=== PATIENT | female | born 1995 | race Caucasian/White ===

== ENCOUNTER → 2018-10-18 | Outpatient (CLI) | payer OTHER, BC ==
[~2018-10-18] MED LIST: OMEP20ER; ONDA4ODT; SULTRIEL
== END | disposition home or self-care (01) ==
LOC: LAB EV 19:09 → LAB SHORT 19:09
DX: J02.9 Acute pharyngitis, unspecified (principal)
CPT/HCPCS: 87070

== ENCOUNTER → 2018-11-23 | Outpatient (CLI) | payer OTHER, BC | END | disposition home or self-care (01) | LOC: LAB SHORT 10:49 → LAB 10:49 | PROVIDERS: Obstetrics & Gynecology | DX: Z01.419 Encounter for gynecological examination (general) (routine) without abnormal findings (principal) | CPT/HCPCS: G0123 ==

== ENCOUNTER → 2022-10-06 | Outpatient (CLI) | payer BC ==
[2022-10-06 13:20] LABS: International Normalized Ratio 0.99; Prothrombin Time Results 10.4 Sec (9.7-11.5)
[2022-10-06 14:11] LABS: Glutamyl Transpeptidase, GGT 21 U/L (5-55)
[2022-10-06 14:20] LABS: Alanine Aminotransfer (ALT/SGP 93 U/L (12-78); Albumin, Blood 3.5 g/dL (3.4-5.0); Albumin/Globulin Ratio 0.8 (0.8-1.8); Alk Phos 65 U/L (50-136); Aspartate Aminotrans (AST/SGOT 34 U/L (12-37); Bilirubin, Direct <0.1 mg/dL (0.0-0.3); Bilirubin, Indirect Unable to Calculate mg/dL (0.1-0.7); Bilirubin, Total 0.5 mg/dL (0.1-1.0); Globulin, Blood 4.6 g/dL (2.2-4.0); Total Protein, Blood 8.1 g/dL (6.4-8.2)
== END | disposition home or self-care (01) ==
LOC: LAB SHORT 12:21 → LAB 12:21
PROVIDERS: Nurse Practitioner Family
DX: R16.0 Hepatomegaly, not elsewhere classified (principal)
CPT/HCPCS: 80076; 82977; 85610

== ENCOUNTER → 2024-12-10 | Outpatient (CLI) | payer BC ==
[2024-12-10 11:48] LABS: Source, Urine Clean Catch
[2024-12-10 14:32] LABS: Appearance, Urine Clear (Clear); Bilirubin, Urine Neg (Neg); Blood, Urine Neg (Neg); Color, Urine Yellow (P-Yellow); Glucose Qualitative, Urine Neg (Neg); Ketones, Urine Neg (Neg); Leukocyte Esterase, Urine Neg (Neg); Nitrite, Urine Neg (Neg); Protein, Urine 1+ (Neg); Urobilinogen, Urine NORM (Normal)
[2024-12-10 14:41] LABS: BASOPHILS ABSOLUTE AUTO 0.02 K/mm3 (0.00-0.23); BASOPHILS PERCENT AUTO 0 % (0-2); EOSINOPHILS ABSOLUTE AUTO 0.04 K/mm3 (0.00-0.68); EOSINOPHILS PERCENT AUTO 1 % (0-6); Hematocrit 44.5 % (33.0-51.0); IMMATURE GRAN ABSOLUTE AUTO 0.02 K/mm3 (0.00-0.10); IMMATURE GRAN PERCENT AUTO 0 % (0-1); LYMPHOCYTES ABSOLUTE AUTO 1.69 K/mm3 (0.84-5.20); LYMPHOCYTES PERCENT AUTO 23 % (21-46); MONOCYTES ABSOLUTE AUTO 0.45 K/mm3 (0.16-1.47); MONOCYTES PERCENT AUTO 6 % (4-13); Mean Corpuscular HGB 28.2 pg (26.0-34.0); Mean Corpuscular HGB Conc 33.7 g/dL (31.5-36.5); Mean Corpuscular Volume 84 fL (80-100); Mean Platelet Volume 12.9 fL (9.1-12.4); NEUTROPHILS ABSOLUTE AUTO 5.02 K/mm3 (1.96-9.15); NEUTROPHILS PERCENT AUTO 69 % (41-73); Platelet Count 230 K/mm3 (150-400); RDW Coefficient Variation 13.7 % (11.7-14.2); Red Blood Cell Count 5.32 M/mm3 (3.80-5.20); White Blood Cell Count 7.24 K/mm3 (4.00-11.30)
[2024-12-11 16:59] LABS: HEPATITIS B SURFACE ANTIGEN Negative (Negative)
[2024-12-11 17:51] LABS: HIV 1,2 COMBO ANTIGEN/ANTIBODY Negative (Negative)
[2024-12-11 19:14] LABS: HEPATITIS C AB CIA INTERP Negative (Negative); HEPATITIS C ANTIBODY CIA INDEX 0.03 IV
== END | disposition home or self-care (01) ==
LOC: LAB SHORT 11:46 → LAB 11:46
PROVIDERS: Registered Nurse Community Health
DX: Z34.91 Encounter for supervision of normal pregnancy, unspecified, first trimester (principal)
CPT/HCPCS: 84443; 86803; 87086; 87340; 87389

== ENCOUNTER → 2025-06-23 | Outpatient (CLI) | payer BC ==
[~2025-06-23] MED LIST changes: +Aspir 8181 MG PO; +DESV50 PO; +FAMO20; +LABE100 PO; +METF500C PO; +PRENATAL TABLE1 EAC2 PO; +PROBIOTIC1 EA13 PO; +[UNRECOGNIZED DRUG - OTHER] PO
== END ==
LOC: LAB SHORT 08:00 → LAB 08:00
DX: Z34.03 Encounter for supervision of normal first pregnancy, third trimester (principal)
CPT/HCPCS: 87081

== ENCOUNTER 2025-06-24 18:25 | Inpatient (IN) | payer BC ==
[2025-06-24] VITALS (14 sets, daily range): BP systolic 129–180; BP diastolic 60–91
[~2025-06-24] VITALS: Ht 165.1 cm; Wt 127.3 kg
[~2025-06-24 18:25] MED LIST changes: -Aspir 8181 MG PO; -DESV50 PO; -FAMO20; -LABE100 PO; -METF500C PO; -PRENATAL TABLE1 EAC2 PO; -PROBIOTIC1 EA13 PO; -[UNRECOGNIZED DRUG - OTHER] PO
[2025-06-24] MEDS ORDERED: Magnesium Sulf 2 GM/Water 50ML 50 ML IV SCH (19:25)
[2025-06-24] MEDS ORDERED: Labetalol HCL 5 MG/ML 4ML Injection (Single Dose) IV PRN ×3 (19:25→23:45)
[2025-06-24] MEDS ORDERED: Labetalol HCL 5 MG/ML 4ML Injection (Single Dose) IV ONE (19:25)
[2025-06-24] MEDS ORDERED: OXYTOCIN/RINGER'S LACTATE 500 ML IV PRN (19:35)
[2025-06-24] MEDS ORDERED: Ondansetron HCl 2 MG / ML 2ML Vial IV PRN (19:35)
[2025-06-24] MEDS ORDERED: Oxytocin 10 Unit / ML Vial IM PRN (19:35)
[2025-06-24] MEDS ORDERED: Carboprost Tromethamine 250 MCG/ML 1ML Amp IM PRN (19:35)
[2025-06-24] MEDS ORDERED: Methylergonovine Maleate 0.2MG / ML 1ML Amp IM PRN (19:35)
[2025-06-24] MEDS ORDERED: Tranexamic Acid 100 ML IV SCH (19:55)
[2025-06-24] MEDS ORDERED: Aspir 8181 MG PO (20:16)
[2025-06-24] MEDS ORDERED: LABE100 PO (20:17)
[2025-06-24] MEDS ORDERED: METF500C PO (20:18)
[2025-06-24] MEDS ORDERED: DESV50 PO (20:18)
[2025-06-24] MEDS ORDERED: PROBIOTIC1 EA13 PO (20:19)
[2025-06-24] MEDS ORDERED: PRENATAL TABLE1 EAC2 PO (20:19)
[2025-06-24] MEDS ORDERED: FAMO20 (20:19)
[2025-06-24] MEDS ORDERED: [UNRECOGNIZED DRUG - OTHER] PO (20:20)
[2025-06-24 20:53] LABS: BASOPHILS ABSOLUTE AUTO 0.02 K/mm3 (0.00-0.23); BASOPHILS PERCENT AUTO 0 % (0-2); EOSINOPHILS ABSOLUTE AUTO 0.08 K/mm3 (0.00-0.68); EOSINOPHILS PERCENT AUTO 1 % (0-6); Hematocrit 33.8 % (33.0-51.0); Hemoglobin 11.3 g/dL (11.5-16.0); IMMATURE GRAN ABSOLUTE AUTO 0.03 K/mm3 (0.00-0.10); IMMATURE GRAN PERCENT AUTO 0 % (0-1); LYMPHOCYTES ABSOLUTE AUTO 2.16 K/mm3 (0.84-5.20); LYMPHOCYTES PERCENT AUTO 22 % (21-46); MONOCYTES ABSOLUTE AUTO 0.67 K/mm3 (0.16-1.47); MONOCYTES PERCENT AUTO 7 % (4-13); Mean Corpuscular HGB Conc 33.4 g/dL (31.5-36.5); Mean Corpuscular Volume 82 fL (80-100); NEUTROPHILS ABSOLUTE AUTO 7.03 K/mm3 (1.96-9.15); NEUTROPHILS PERCENT AUTO 70 % (41-73); NRBC ABSOLUTE 0.00 K/mm3 (0.00-0.02); NRBC Auto 0.0 /100 WBC (0.0-0.2); Platelet Count 220 K/mm3 (150-400); RDW Coefficient Variation 14.7 % (11.7-14.2); RDW Standard Deviation 43.8 fL (35.1-46.3)
[2025-06-24 21:10] LABS: Fibrinogen 652.0 mg/dL (170-430); Prothrombin Time Results 10.3 Sec (9.7-11.5)
[2025-06-24 21:21] LABS: Alanine Aminotransfer (ALT/SGP 36.0 U/L (12-78); Albumin, Blood 2.5 g/dL (3.4-5.0); Albumin/Globulin Ratio 0.6 (0.8-1.8); Anion Gap 9.0 mmol/L (3-11); Aspartate Aminotrans (AST/SGOT 31.0 U/L (12-37); Bilirubin, Total 0.4 mg/dL (0.1-1.0); Blood Urea Nitrogen 9.0 mg/dL (8-24); CO2, Blood 22.0 mmol/L (21-32); Calcium, Blood 9.1 mg/dL (8.5-10.1); Chloride, Blood 108.0 mmol/L (98-108); Creatinine, Blood 0.53 mg/dL (0.40-1.00); Globulin, Blood 4.4 g/dL (2.2-4.0); Glucose, Blood 81.0 mg/dL (70-99); Lactate Dehydrogenase (Ld),Bld 278.0 U/L (100-240); Potassium, Blood 3.8 mmol/L (3.5-5.5); Sodium, Blood 135.0 mmol/L (136-145); Total Protein, Blood 6.9 g/dL (6.4-8.2)
[2025-06-24 22:54] LABS: Creatinine, Urine Random 48.5 mg/dL (27.00-270.00); Protein, Urine Random 12.6 mg/dL (0.0-11.9); Protein/Creat Ratio, Ur Random 0.3
[2025-06-25] VITALS (48 sets, daily range): BP systolic 118–174; BP diastolic 57–124
[2025-06-25] MEDS ORDERED: Metoclopramide HCl 5MG / ML 2ML Vial IV PRN (02:45)
[2025-06-25] MEDS ORDERED: DiphenhydrAMINE HCl 50 MG/ML 1ML Vial IV ONE ×2 (02:45→09:00)
[2025-06-25] MEDS ORDERED: Pantoprazole Sodium 40 MG Injection IV SCH (02:45)
[2025-06-25 06:29] LABS: BASOPHILS ABSOLUTE AUTO 0.01 K/mm3 (0.00-0.23); BASOPHILS PERCENT AUTO 0 % (0-2); EOSINOPHILS ABSOLUTE AUTO 0.03 K/mm3 (0.00-0.68); EOSINOPHILS PERCENT AUTO 0 % (0-6); Hematocrit 34.3 % (33.0-51.0); Hemoglobin 11.2 g/dL (11.5-16.0); IMMATURE GRAN ABSOLUTE AUTO 0.03 K/mm3 (0.00-0.10); IMMATURE GRAN PERCENT AUTO 0 % (0-1); LYMPHOCYTES ABSOLUTE AUTO 1.59 K/mm3 (0.84-5.20); LYMPHOCYTES PERCENT AUTO 13 % (21-46); MONOCYTES ABSOLUTE AUTO 0.49 K/mm3 (0.16-1.47); MONOCYTES PERCENT AUTO 4 % (4-13); Mean Corpuscular HGB Conc 32.7 g/dL (31.5-36.5); Mean Corpuscular Volume 84 fL (80-100); NEUTROPHILS ABSOLUTE AUTO 9.91 K/mm3 (1.96-9.15); NEUTROPHILS PERCENT AUTO 82 % (41-73); NRBC ABSOLUTE 0.00 K/mm3 (0.00-0.02); NRBC Auto 0.0 /100 WBC (0.0-0.2); Platelet Count 203 K/mm3 (150-400); RDW Coefficient Variation 14.6 % (11.7-14.2); RDW Standard Deviation 44.5 fL (35.1-46.3)
[2025-06-25 06:44] LABS: Alanine Aminotransfer (ALT/SGP 38.0 U/L (12-78); Albumin, Blood 2.5 g/dL (3.4-5.0); Albumin/Globulin Ratio 0.6 (0.8-1.8); Anion Gap 10.0 mmol/L (3-11); Aspartate Aminotrans (AST/SGOT 30.0 U/L (12-37); Bilirubin, Total 0.5 mg/dL (0.1-1.0); Blood Urea Nitrogen 7.0 mg/dL (8-24); CO2, Blood 24.0 mmol/L (21-32); Calcium, Blood 8.1 mg/dL (8.5-10.1); Chloride, Blood 102.0 mmol/L (98-108); Creatinine, Blood 0.52 mg/dL (0.40-1.00); Globulin, Blood 4.3 g/dL (2.2-4.0); Glucose, Blood 116.0 mg/dL (70-99); Potassium, Blood 3.8 mmol/L (3.5-5.5); Sodium, Blood 132.0 mmol/L (136-145); Total Protein, Blood 6.8 g/dL (6.4-8.2)
[2025-06-25] MEDS ORDERED: HydrALAZINE HCl 20 MG / ML 1ML Vial IV ONE (12:55)
[2025-06-25] MEDS ORDERED: HydrALAZINE HCl 20 MG / ML 1ML Vial IV PRN ×2 (13:00)
[2025-06-25] MEDS ORDERED: Labetalol HCL 5 MG/ML 4ML Injection (Single Dose) ONE (14:17)
[2025-06-25] MEDS ORDERED: Ondansetron HCl 2 MG / ML 2ML Vial IV ONE (14:30)
[2025-06-25] MEDS ORDERED: Ondansetron HCl 2 MG / ML 2ML Vial IV PRN (18:50)
[2025-06-25] MEDS ORDERED: Morphine Sulfate 10 MG/ML 1MLSYR IM PRN (18:50)
[2025-06-25] MEDS ORDERED: DiphenhydrAMINE HCl 50 MG/ML 1ML Vial IV PRN (18:50)
[2025-06-25] MEDS ORDERED: OXYTOCIN/RINGER'S LACTATE 500 ML IV SCH (19:05)
[2025-06-26] VITALS (32 sets, daily range): BP systolic 105–150; BP diastolic 50–93
[2025-06-26 06:11] LABS: BASOPHILS ABSOLUTE AUTO 0.02 K/mm3 (0.00-0.23); BASOPHILS PERCENT AUTO 0 % (0-2); EOSINOPHILS ABSOLUTE AUTO 0.05 K/mm3 (0.00-0.68); EOSINOPHILS PERCENT AUTO 1 % (0-6); Hematocrit 34.9 % (33.0-51.0); Hemoglobin 11.6 g/dL (11.5-16.0); IMMATURE GRAN ABSOLUTE AUTO 0.03 K/mm3 (0.00-0.10); IMMATURE GRAN PERCENT AUTO 0 % (0-1); LYMPHOCYTES ABSOLUTE AUTO 1.50 K/mm3 (0.84-5.20); LYMPHOCYTES PERCENT AUTO 14 % (21-46); MONOCYTES ABSOLUTE AUTO 0.90 K/mm3 (0.16-1.47); MONOCYTES PERCENT AUTO 8 % (4-13); Mean Corpuscular HGB Conc 33.2 g/dL (31.5-36.5); Mean Corpuscular Volume 83 fL (80-100); NEUTROPHILS ABSOLUTE AUTO 8.45 K/mm3 (1.96-9.15); NEUTROPHILS PERCENT AUTO 77 % (41-73); NRBC ABSOLUTE 0.00 K/mm3 (0.00-0.02); NRBC Auto 0.0 /100 WBC (0.0-0.2); Platelet Count 216 K/mm3 (150-400); RDW Coefficient Variation 14.9 % (11.7-14.2); RDW Standard Deviation 44.9 fL (35.1-46.3)
[2025-06-26 06:25] LABS: Alanine Aminotransfer (ALT/SGP 42.0 U/L (12-78); Albumin, Blood 2.5 g/dL (3.4-5.0); Albumin/Globulin Ratio 0.6 (0.8-1.8); Anion Gap 12.0 mmol/L (3-11); Aspartate Aminotrans (AST/SGOT 30.0 U/L (12-37); Bilirubin, Total 0.5 mg/dL (0.1-1.0); Blood Urea Nitrogen 6.0 mg/dL (8-24); CO2, Blood 23.0 mmol/L (21-32); Calcium, Blood 7.8 mg/dL (8.5-10.1); Chloride, Blood 104.0 mmol/L (98-108); Creatinine, Blood 0.67 mg/dL (0.40-1.00); Globulin, Blood 4.4 g/dL (2.2-4.0); Glucose, Blood 103.0 mg/dL (70-99); Potassium, Blood 3.6 mmol/L (3.5-5.5); Sodium, Blood 135.0 mmol/L (136-145); Total Protein, Blood 6.9 g/dL (6.4-8.2)
[2025-06-26] MEDS ORDERED: Pantoprazole Sodium 40 MG Injection IV SCH (09:00)
[2025-06-26] MEDS ORDERED: Petrolatum/Mineral Oil/Lanolin 1 APPLIC/50 GM Tube TOP PRN (21:35)
[2025-06-27] VITALS (44 sets, daily range): BP systolic 91–173; BP diastolic 49–88
[2025-06-27] MEDS ORDERED: FentaNYL Citrate 50 MCG/ML 2 ML Injection IV ONE (11:30)
[2025-06-27] MEDS ORDERED: FentaNYL 2mcg/ml-Bup 0.1% Epd 250 ML EPI PRN (18:05)
[2025-06-27] MEDS ORDERED: ePHEDrine Sulfate 50 MG/ML 1ML Injection XX PRN (18:05)
[2025-06-27] MEDS ORDERED: FentaNYL Citrate 50 MCG/ML 2 ML Injection ONE (18:35)
[2025-06-27] MEDS ORDERED: Prochlorperazine Edisylate 10 mg Vial ONE (18:39)
[2025-06-27] MEDS ORDERED: Metoclopramide HCl 5MG / ML 2ML Vial ONE (18:39)
--- NOTE | 2025-06-27 23:50 | NUR ---
IN USE CHECK LIST UC LENGTH EQUAL TO OR EXCEEDING 120 SECONDS ON GREATER THAN 2 UC'S IN [address], UC'S MILD. PIT CONTINUED AT THIS TIME AT 4MU
[2025-06-28] VITALS (45 sets, daily range): BP systolic 98–177; BP diastolic 57–87
[2025-06-28] MEDS ORDERED: CeFAZolin Sodium 3,000 MG in NS 100 ML IV SCH (07:25)
[2025-06-28] MEDS ORDERED: Citric Acid/Sodium Citrate 30 ML BTL PO STA (07:30)
[2025-06-28] MEDS ORDERED: Metoclopramide HCl 5MG / ML 2ML Vial IV ONE (07:30)
[2025-06-28] MEDS ORDERED: FentaNYL Citrate 50 MCG/ML 2 ML Injection ONE (12:28)
[2025-06-28] MEDS ORDERED: Lidocaine HCl 2% 10 ML SDA ONE (12:29)
[2025-06-28 12:35] LABS: Platelet Count 196 K/mm3 (150-400)
[2025-06-28] MEDS ORDERED: Phenylephrine HCl 100 MCG/ML-NS 10MLSYR (1MG/10ML) ONE (12:46)
[2025-06-28] MEDS ORDERED: Bupivacaine HCl 0.25% 30 ML Injection ONE (12:54)
[2025-06-28] MEDS ORDERED: Bupivacaine 0.5% HCl 5 MG/ML 30MLVIAL ONE (12:54)
[2025-06-28] MEDS ORDERED: Oxytocin 10 Unit / ML Vial ONE (12:55)
[2025-06-28] MEDS ORDERED: Ketamine HCl 100 MG / ML 5ML Vial ONE (13:03)
[2025-06-28] MEDS ORDERED: Midazolam HCl 1MG / ML 2ML Vial ONE (13:08)
--- NOTE | 2025-06-28 13:18 | NUR ---
06/28/25 1318 Viri Singer MARTÍNEZ CATHETER AND EPIDURAL PLACED PRIOR TO COMING TO OR. BABY BORN AT 1303. CORD SENT WITH RT AND CORD BLOOD GIVEN TO L&D STAFF.
[2025-06-28 13:22] LABS: PCO2 Cord - Arterial 72.1 mmHg (40-50); PO2 Cord - Arterial 13.0 mmHg (16-20); pH Cord - Arterial 7.16 (7.28-7.35)
[2025-06-28] MEDS ORDERED: HYDROmorphone HCl/Pf 1MG SYR ONE (13:22)
[2025-06-28 13:24] LABS: PCO2 Cord - Venous 57.9 mmHg (40-50); PO2 Cord - Venous 13.6 mmHg (28-32); pH Umbilical Cord - Venous 7.26 (7.26-7.35)
[2025-06-28] MEDS ORDERED: Ketorolac Tromethamine 30mg Vial ONE (13:40)
[2025-06-28] MEDS ORDERED: Magnesium Hydroxide Conc 10 ML UDC PO PRN (14:10)
[2025-06-28] MEDS ORDERED: Tranexamic Acid 100 ML IV SCH (14:15)
[2025-06-28] MEDS ORDERED: HYDROmorphone HCl/Pf 1MG SYR IV PRN (14:15)
[2025-06-28] MEDS ORDERED: FentaNYL Citrate 50 MCG/ML 2 ML Injection IV PRN (14:15)
[2025-06-28] MEDS ORDERED: Ketorolac Tromethamine 30mg Vial IV SCH (15:00)
[2025-06-29] VITALS (9 sets, daily range): BP systolic 139–168; BP diastolic 72–88
[2025-06-29 06:46] LABS: BASOPHILS ABSOLUTE AUTO 0.02 K/mm3 (0.00-0.23); BASOPHILS PERCENT AUTO 0 % (0-2); EOSINOPHILS ABSOLUTE AUTO 0.04 K/mm3 (0.00-0.68); EOSINOPHILS PERCENT AUTO 0 % (0-6); Hematocrit 29.5 % (33.0-51.0); Hemoglobin 9.5 g/dL (11.5-16.0); IMMATURE GRAN ABSOLUTE AUTO 0.04 K/mm3 (0.00-0.10); IMMATURE GRAN PERCENT AUTO 0 % (0-1); LYMPHOCYTES ABSOLUTE AUTO 1.48 K/mm3 (0.84-5.20); LYMPHOCYTES PERCENT AUTO 14 % (21-46); MONOCYTES ABSOLUTE AUTO 0.91 K/mm3 (0.16-1.47); MONOCYTES PERCENT AUTO 9 % (4-13); Mean Corpuscular HGB Conc 32.2 g/dL (31.5-36.5); Mean Corpuscular Volume 85 fL (80-100); NEUTROPHILS ABSOLUTE AUTO 8.23 K/mm3 (1.96-9.15); NEUTROPHILS PERCENT AUTO 77 % (41-73); NRBC ABSOLUTE 0.00 K/mm3 (0.00-0.02); NRBC Auto 0.0 /100 WBC (0.0-0.2); Platelet Count 175 K/mm3 (150-400); RDW Coefficient Variation 15.2 % (11.7-14.2); RDW Standard Deviation 47.1 fL (35.1-46.3)
[2025-06-29 07:03] LABS: Alanine Aminotransfer (ALT/SGP 34.0 U/L (12-78); Albumin, Blood 2.1 g/dL (3.4-5.0); Albumin/Globulin Ratio 0.6 (0.8-1.8); Anion Gap 8.0 mmol/L (3-11); Aspartate Aminotrans (AST/SGOT 32.0 U/L (12-37); Bilirubin, Total 0.5 mg/dL (0.1-1.0); Blood Urea Nitrogen 7.0 mg/dL (8-24); CO2, Blood 25.0 mmol/L (21-32); Calcium, Blood 8.4 mg/dL (8.5-10.1); Chloride, Blood 109.0 mmol/L (98-108); Creatinine, Blood 0.64 mg/dL (0.40-1.00); Globulin, Blood 3.7 g/dL (2.2-4.0); Glucose, Blood 85.0 mg/dL (70-99); Potassium, Blood 4.2 mmol/L (3.5-5.5); Sodium, Blood 138.0 mmol/L (136-145); Total Protein, Blood 5.8 g/dL (6.4-8.2)
[2025-06-29] MEDS ORDERED: Prenatal Vit/FE Fumarate/FA 1 Tab PO SCH (09:00)
[2025-06-29] MEDS ORDERED: Ketorolac Tromethamine 30mg Vial IV ONE (09:10)
[2025-06-30] VITALS (13 sets, daily range): BP systolic 131–175; BP diastolic 64–92
[2025-06-30 09:23] LABS: BASOPHILS ABSOLUTE AUTO 0.02 K/mm3 (0.00-0.23); BASOPHILS PERCENT AUTO 0 % (0-2); EOSINOPHILS ABSOLUTE AUTO 0.15 K/mm3 (0.00-0.68); EOSINOPHILS PERCENT AUTO 1 % (0-6); Hematocrit 28.4 % (33.0-51.0); Hemoglobin 9.3 g/dL (11.5-16.0); IMMATURE GRAN ABSOLUTE AUTO 0.05 K/mm3 (0.00-0.10); IMMATURE GRAN PERCENT AUTO 1 % (0-1); LYMPHOCYTES ABSOLUTE AUTO 1.73 K/mm3 (0.84-5.20); LYMPHOCYTES PERCENT AUTO 17 % (21-46); MONOCYTES ABSOLUTE AUTO 0.67 K/mm3 (0.16-1.47); MONOCYTES PERCENT AUTO 6 % (4-13); Mean Corpuscular HGB Conc 32.7 g/dL (31.5-36.5); Mean Corpuscular Volume 84 fL (80-100); NEUTROPHILS ABSOLUTE AUTO 7.77 K/mm3 (1.96-9.15); NEUTROPHILS PERCENT AUTO 75 % (41-73); NRBC ABSOLUTE 0.00 K/mm3 (0.00-0.02); NRBC Auto 0.0 /100 WBC (0.0-0.2); Platelet Count 180 K/mm3 (150-400); RDW Coefficient Variation 15.2 % (11.7-14.2); RDW Standard Deviation 46.3 fL (35.1-46.3)
[2025-06-30 09:42] LABS: Alanine Aminotransfer (ALT/SGP 36.0 U/L (12-78); Albumin, Blood 2.2 g/dL (3.4-5.0); Albumin/Globulin Ratio 0.5 (0.8-1.8); Anion Gap 8.0 mmol/L (3-11); Aspartate Aminotrans (AST/SGOT 31.0 U/L (12-37); Bilirubin, Total 0.4 mg/dL (0.1-1.0); Blood Urea Nitrogen 7.0 mg/dL (8-24); CO2, Blood 26.0 mmol/L (21-32); Calcium, Blood 8.4 mg/dL (8.5-10.1); Chloride, Blood 108.0 mmol/L (98-108); Creatinine, Blood 0.63 mg/dL (0.40-1.00); Globulin, Blood 4.2 g/dL (2.2-4.0); Glucose, Blood 94.0 mg/dL (70-99); Potassium, Blood 3.6 mmol/L (3.5-5.5); Sodium, Blood 138.0 mmol/L (136-145); Total Protein, Blood 6.4 g/dL (6.4-8.2)
--- NOTE | 2025-06-30 10:11 | NUR ---
COMPLAINS OF HEADACHE WHENEVER SITTING UP OR STANDING. DR. MCCULLOUGH DOWN TO EVALUATE PER DR. PALMA'S INSTRUCTIONS. ORDERS PLACED BY DR. MENDOZA.
[2025-06-30] MEDS ORDERED: DESVENLAFAXINE 50 MG PO SCH (21:00)
[2025-07-01] VITALS (7 sets, daily range): BP systolic 129–149; BP diastolic 66–81
[2025-07-01 07:29] LABS: Alanine Aminotransfer (ALT/SGP 36.0 U/L (12-78); Albumin, Blood 2.2 g/dL (3.4-5.0); Albumin/Globulin Ratio 0.6 (0.8-1.8); Anion Gap 11.0 mmol/L (3-11); Aspartate Aminotrans (AST/SGOT 31.0 U/L (12-37); Bilirubin, Total 0.4 mg/dL (0.1-1.0); Blood Urea Nitrogen 7.0 mg/dL (8-24); CO2, Blood 24.0 mmol/L (21-32); Calcium, Blood 8.2 mg/dL (8.5-10.1); Chloride, Blood 108.0 mmol/L (98-108); Creatinine, Blood 0.64 mg/dL (0.40-1.00); Globulin, Blood 3.9 g/dL (2.2-4.0); Glucose, Blood 79.0 mg/dL (70-99); Potassium, Blood 3.9 mmol/L (3.5-5.5); Sodium, Blood 139.0 mmol/L (136-145); Total Protein, Blood 6.1 g/dL (6.4-8.2)
[2025-07-01] MEDS ORDERED: FLU VACC TS2025-26(6MOS UP)/PF 45 MCG/0.5 ML SYRINGE IM SCH (13:35)
--- NOTE | 2025-07-01 14:37 | NUR ---
PT DIZZY UPON STANDING UP TO DISCHARGE HOME. NOTIFIED. BPs TAKEN LYING, SITTING, STANDING, NOTIFIED [facility] - PT NOT ORTHOSTATIC. PT TO HOLD LABETALOL TONIGHT, TAKE LISINOPRIL. PT TO TAKE BP IN MORNING, IF SBP >150, TAKE LABETALOL, OTHERWISE HOLD. RN TO CHECK BP AT F/U TOMORROW AND NOTIFY [facility] OF RESULTS. OKAYS PT DISCHARGING HOME WITH THIS PLAN. BP LYING 143/78 HR 73 SITTING 139/76 HR 98 STANDING 134/69 HR 100
== END 2025-07-01 14:45 | disposition home or self-care (01) | DRG 788 ==
LOC: OBS 18:25 → BC 19:43
PROVIDERS: Family Medicine; Student in an Organized Health Care Education/Training Program; ADMIT Registered Nurse Community Health
PROC: 0U7C0ZZ Dilation of Cervix, Open Approach (ICD-10-PCS; 2025-06-28)
PROC: 10H07YZ Insertion of Other Device into Products of Conception, Via Natural or Artificial Opening (ICD-10-PCS; 2025-06-28)
PROC: 4A1HXCZ Monitoring of Products of Conception, Cardiac Rate, External Approach (ICD-10-PCS; 2025-06-28)
PROC: 10D00Z1 Extraction of Products of Conception, Low, Open Approach (ICD-10-PCS; principal; 2025-06-28 09:30)
DX: O11.4 Pre-existing hypertension with pre-eclampsia, complicating childbirth (principal); Z3A.37 37 weeks gestation of pregnancy; Z37.0 Single live birth; O24.425 Gestational diabetes mellitus in childbirth, controlled by oral hypoglycemic drugs; O62.0 Primary inadequate contractions; Z79.84 Long term (current) use of oral hypoglycemic drugs; O99.214 Obesity complicating childbirth; Z79.82 Long term (current) use of aspirin; O99.62 Diseases of the digestive system complicating childbirth; K21.9 Gastro-esophageal reflux disease without esophagitis; Z28.21 Immunization not carried out because of patient refusal
CPT/HCPCS: 36415; 51702; 59025; 80053; 81003; 82570; 82803; 82947; 83615; 84156; 85025; 85049; 85384; 85610; 85730; 86850; 86900; 86901; 86923; 99213; A9270; C1751; J0360; J0690; J0780; J1171; J1200; J1885; J2003; J2250; J2270; J2371; J2405; J2470; J2590; J2704; J2765; J3010; J3475; J7120